=== PATIENT | female | born 1990 | race African-American/Black ===

== ENCOUNTER 2016-08-11 03:15 | Emergency (ER) | payer OTHER | END 2016-08-11 03:52 | disposition home or self-care (01) | LOC: CED 03:15 | DX: R10.9 Unspecified abdominal pain (principal) | CPT/HCPCS: 84703; 99283 ==

== ENCOUNTER 2016-08-17 16:39 | Emergency (ER) | payer OTHER ==
[2016-08-17 16:34] LABS: INFLUENZA A NEG (NEG); INFLUENZA B NEG (NEG)
== END 2016-08-17 16:58 | disposition home or self-care (01) ==
LOC: CFTX 16:39
PROVIDERS: Physician Assistant
DX: B34.9 Viral infection, unspecified (principal)
CPT/HCPCS: 87651; 87804; 99282

== ENCOUNTER 2016-09-03 09:36 | Emergency (ER) | payer OTHER | END 2016-09-03 10:56 | disposition home or self-care (01) | LOC: CED 09:36 | DX: H65.03 Acute serous otitis media, bilateral (principal) | CPT/HCPCS: 87651; 99283 ==